=== PATIENT | female | born 1995 | race Caucasian/White ===

== ENCOUNTER 2016-08-24 20:56 | Emergency (ER) | payer BC ==
--- NOTE | 2016-08-24 20:58 | UC ---
Cardiac HPI - HPI Summary HPI Summary: 21 year old female presents with complains of left sided chest pain. She was moving furniture yesterday and felt severe pain on the left side of her chest when she tried to lift herself up. I will send her to the ER to rule out NC. - History of Current Complaint Stated Complaint: CHEST PAIN Time Seen by Provider: 08/24/16 20:57 - Allergy/Home Medications Allergies/Adverse Reactions: Allergies Allergy/AdvReac Type Severity Reaction Status Date / Time No Known Allergies Allergy Verified 08/24/16 21:01 Home Medications: Home Medications NK [No Home Medications Reported] 08/24/16 [History Confirmed 08/24/16] Review of Systems Constitutional: Negative Skin: Negative Eyes: Negative ENT: Negative Respiratory: Negative Cardiovascular: Chest Pain Gastrointestinal: Negative Genitourinary: Negative Motor: Negative Neurovascular: Negative Musculoskeletal: Negative Neurological: Negative Psychological: Negative All Other Systems Reviewed And Are Negative: Yes Physical Exam Triage Information Reviewed: Yes Eye Exam: Normal ENT Exam: Normal Dental Exam: Normal Neck exam: Normal Neck: Positive: 1 Respiratory Exam: Normal Cardiovascular Exam: Normal Abdominal Exam: Normal Musculoskeletal Exam: Normal Neurological Exam: Normal Psychological Exam: Normal Skin Exam: Normal - Assessment/Plan Course Of Treatment: chest pain - Clinical Impression Provider Diagnoses: chest pain left sided Discharge - Discharge Plan Condition: Guarded Disposition: AGAINST MEDICAL ADVICE Patient Education Materials: Chest Pain (ED)
[2016-08-24 21:05] VITALS: BP 129/75
== END 2016-08-24 21:45 | disposition left against medical advice (07) ==
LOC: UCEAST 20:56
DX: R07.9 Chest pain, unspecified (principal)
CPT/HCPCS: 93005; 99202; G0463

== ENCOUNTER 2016-08-24 22:09 | Emergency (ER) | payer BC ==
--- NOTE | 2016-08-25 00:47 | UC ---
Cardiac HPI - HPI Summary HPI Summary: This 21 y/o female comes to ed after being at urgent care she is justus for evaluation of 3 days of chest pain she has point tenderness at LSB and reports increase pain in that area with movement and deep breathing - History of Current Complaint Chief Complaint: EDChestWallPain Stated Complaint: CHEST DISCOMFORT-SENT FROM [facility] Time Seen by Provider: 08/25/16 00:17 Hx Obtained From: Patient Onset/Duration: Gradual Onset, Lasting Days - 3, Still Present Timing: Constant Initial Severity: Moderate Current Severity: Moderate Pain Intensity: 6 Chest Pain Location: Diffuse - lsb3/4 rib Aggravating: Movement, Deep Breaths Alleviating: Nothing Associated Signs & Symptoms: Positive: Chest Pain - Allergy/Home Medications Allergies/Adverse Reactions: Allergies Allergy/AdvReac Type Severity Reaction Status Date / Time No Known Allergies Allergy Verified 08/24/16 21:01 PMH/Surg Hx/FS Hx/Imm Hx Previously Healthy: Yes - Surgical History Surgical History: None - Family History Known Family History: Positive: None - Social History Occupation: Employed Full-time Lives: With Family Alcohol Use: Occasionally Substance Use Type: None Smoking Status (MU): Never Smoked Tobacco Review of Systems Constitutional: Negative Skin: Negative Eyes: Negative ENT: Negative Respiratory: Negative Cardiovascular: Chest Pain Gastrointestinal: Negative Genitourinary: Negative Motor: Negative Neurovascular: Negative Musculoskeletal: Negative Neurological: Negative Psychological: Negative All Other Systems Reviewed And Are Negative: Yes Physical Exam Triage Information Reviewed: Yes Appearance: Well-Appearing, No Pain Distress, Well-Nourished Vital Signs: Initial Vital Signs Temp 99.8 F 08/24/16 22:14 Pulse 76 08/24/16 22:14 Resp 20 08/24/16 22:14 Pulse Ox 100 08/24/16 22:14 Vital Signs Reviewed: Yes Eye Exam: Normal Eyes: Positive: Conjunctiva Clear ENT Exam: Normal ENT: Positive: Normal ENT inspection, Hearing grossly normal, Pharynx normal, TMs normal. Negative: Nasal congestion, Nasal drainage, Tonsillar swelling, Tonsillar exudate, Trismus, Muffled/hoarse voice Dental Exam: Normal Neck exam: Normal Neck: Positive: Supple, Nontender, No Lymphadenopathy Respiratory Exam: Normal Respiratory: Positive: Chest non-tender, Lungs clear, Normal breath sounds, No respiratory distress, No accessory muscle use Cardiovascular Exam: Normal Cardiovascular: Positive: RRR, No Murmur, Pulses Normal, Brisk Capillary Refill Abdominal Exam: Normal Abdomen Description: Positive: Nontender, No Organomegaly, Soft Bowel Sounds: Positive: Present Musculoskeletal Exam: Normal Musculoskeletal: Positive: Strength Intact, ROM Intact, No Edema, Other: Neurological Exam: Normal Neurological: Positive: Alert, Muscle Tone Normal Psychological Exam: Normal Skin Exam: Normal Diagnostics - Radiology No standard instances Xray Interpretation: No Acute Changes Radiology Interpretation Completed By: ED Physician - EKG Cardiac Rate: NL Cardiac Rhythm: Sinus: Normal - Assessment/Plan Course Of Treatment: NSAIDS, rest heat follow with pcp - Differential Diagnoses - Chest Pain Differential Diagnosis/HQI/PQRI: Acute TX, ACS, Chest Wall, Lower Respiratory Infection, Pulmonary Edema, Pulmonary Embolism - Clinical Impression Provider Diagnoses: Chest Wall Pain Discharge - Discharge Plan Condition: Stable Disposition: HOME Patient Education Materials: Ibuprofen (By mouth), Chest Wall Pain (ED), Warm Compress or Soak (ED) Referrals: [facility] [Outside] - 2 Weeks
[2016-08-25] MEDS ORDERED: Aspirin Low Dose CHEW TAB* 81 MG PO ONE (00:53)
[2016-08-25 01:21] LABS: Hematocrit 39 % (35-47); Hemoglobin 13.2 g/dl (12.0-16.0); Mean Corpuscular HGB Conc 34 g/dl (31-36); Mean Corpuscular Hemoglobin 30 pg (27-31); Mean Corpuscular Volume 90 fL (80-97); Mean Platelet Volume 9 um3 (7.4-10.4); Red Blood Count 4.36 10^6/ul (4.0-5.4); Red Cell Distribution Width 13 % (10.5-15); White Blood Count 5.5 10^3/ul (3.5-10.8)
[2016-08-25 01:37] LABS: Albumin 4.4 g/dL (3.2-5.2); BUN/Creatinine Ratio 17.6 (8-20); EGFR African American 140.5 (>60); EGFR Non-African American 109.2 (>60); Globulin 2.4 g/dL (2-4); Potassium 3.7 mmol/L (3.5-5.0); Total Bilirubin 0.8 mg/dL (0.2-1.0); Total Protein 6.8 g/dL (6.4-8.9)
[2016-08-25 01:52] LABS: TSH (Thyroid Stimulating Horm) 1.42 mcIU/mL (0.34-5.60)
[2016-08-25 02:05] VITALS: BP 107/70
--- NOTE | 2016-08-25 10:15 | RAD ---
Indication: Substernal chest pain. 2 views of the chest including dual energy PA views demonstrate no mediastinal shift. Heart is of normal size and configuration. Lung payan appear clear. IMPRESSION: No active cardiopulmonary disease is noted.
== END 2016-08-25 02:05 | disposition home or self-care (01) ==
LOC: ED 22:09
DX: R07.89 Other chest pain (principal)
CPT/HCPCS: 36415; 71020; 80053; 82553; 83605; 84443; 84484; 85025; 99282